=== PATIENT | male | born 1965 | race Caucasian/White ===

== ENCOUNTER 2016-06-27 13:18 | Emergency (ER) | payer MEDICAID, MEDICARE, OTHER ==
[~2016-06-27] VITALS: Ht 169.2 cm; Wt 77.3 kg
[~2016-06-27 13:18] MED LIST: KLO1T PO; OXYC5SOL11 PO; TRAZ-115 PO
[2016-06-27 13:32] VITALS: BP 143/85; PULSE 131; RESP 18; O2SAT 96
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
[2016-06-27] MEDS ORDERED: 0.9% Sodium Chloride 1,000 ML IV ONE (14:01)
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
[2016-06-27 15:25] LABS: BASOPHILS % (AUTO) 0.1 % (0-3); EOSINOPHILS % (AUTO) 1.6 % (0-5); MONOCYTES % (AUTO) 12.6 % (4-12); Mean Corpuscular Hemoglobin 31.8 pg (27.0-35.0); Mean Corpuscular Volume 96.1 fL (81-100); NEUTROPHILS % (AUTO) 63.5 % (40-74); Platelet Count 319 bil/L (150-400)
[2016-06-27 15:41] LABS: INR 0.9 ratio
[2016-06-27 16:02] LABS: Magnesium 2.3 mg/dL (1.6-2.6)
[2016-06-27] MEDS: HYDROmorphone 0.5 mg/0.5 mL iSecure Syringe IVPUSH PRN ×2 (16:11→16:31)
[2016-06-27 16:31] VITALS: BP 140/67; PULSE 99; RESP 18; O2SAT 98
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
[2016-06-27] MEDS ORDERED: OXYC1TAB24 PO (17:01)
[2016-06-27] MEDS ORDERED: IBUP-1827 PO (17:01)
[2016-06-27 17:32] VITALS: BP 139/68; PULSE 90; RESP 19; O2SAT 98
== END 2016-06-27 17:34 | disposition home or self-care (01) ==
LOC: SED 13:18
DX: S16.1XXA Strain of muscle, fascia and tendon at neck level, initial encounter (principal); S39.012A Strain of muscle, fascia and tendon of lower back, initial encounter; V43.52XA Car driver injured in collision with other type car in traffic accident, initial encounter; Y93.89 Activity, other specified; Y92.410 Unspecified street and highway as the place of occurrence of the external cause; Y99.8 Other external cause status; R51 Headache; R07.9 Chest pain, unspecified; R20.0 Anesthesia of skin; R42 Dizziness and giddiness; R20.2 Paresthesia of skin; F17.200 Nicotine dependence, unspecified, uncomplicated; Z88.5 Allergy status to narcotic agent
CPT/HCPCS: 36415; 71010; 72070; 72100; 72125; 72170; 74177; 80053; 83735; 85014; 85018; 85025; 85610; 86850; 93005; 96361; 96374; 96375; 99285; G0480; J1170; J2060; J7030; Q9967